=== PATIENT | female | born 1980 | race Two or more races ===

== ENCOUNTER 2020-03-02 05:20 | Emergency (ER) | payer OTHER ==
[~2020-03-02] VITALS: Ht 160 cm; Wt 72.6 kg
[2020-03-02 05:24] VITALS: BP 95/61
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
--- NOTE | 2020-03-02 05:29 | NUR ---
ED Nurse Note: [employer] officers at bedside.
[2020-03-02] MEDS ORDERED: IBUPROFEN600 M1 ORAL (05:39)
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
[2020-03-02] MEDS ORDERED: HYDROcodone/Acetamin 5/325 tab ORAL ONE (05:45)
[2020-03-02 05:56] LABS: APPEARANCE,URINE CLEAR; BILIRUBIN, URINE NEGATIVE (NEGATIVE); COLOR,URINE PALE YELLOW; GLUCOSE, URINE (UA) NEGATIVE (NEGATIVE); KETONES,URINE 1+ (NEGATIVE); LEUKOCYTE ESTERASE ,URINE 1+ (NEGATIVE); NITRITE,URINE NEGATIVE (NEGATIVE); PH,URINE 6 (4.5-8.0); PROTEIN,URINE 2+ (NEGATIVE); UROBILINOGEN,URINE NORMAL MG/DL (0.0-1.0)
--- NOTE | 2020-03-02 06:25 | Diagnostic Imaging Report ---
EXAM: CT Abdomen and Pelvis Without Intravenous Contrast CLINICAL HISTORY: PAIN TECHNIQUE: Axial computed tomography images of the abdomen and pelvis without intravenous contrast. CTDI is 6.0 mGy and DLP is 309.9 mGy-cm. One or more of the following dose reduction techniques were used: automated exposure control, adjustment of the mA and/or kV according to patient size, use of iterative reconstruction technique. COMPARISON: None. FINDINGS: Lung bases: Clear lung bases. ABDOMEN: Liver: Unremarkable. Gallbladder and bile ducts: Status post cholecystectomy otherwise biliary system unremarkable. No ductal dilation. Pancreas: Unremarkable. No ductal dilation. Spleen: Unremarkable. No splenomegaly. Adrenals: Unremarkable. No mass. Kidneys and ureters: Unremarkable. No obstructing stones. No hydronephrosis. Stomach and bowel: Multilevel diverticulosis with no signs of diverticulitis. No obstruction. PELVIS: Appendix: Normal appendix. Bladder: Decompressed urinary bladder otherwise unremarkable. No stones. Reproductive: Anteverted uterus. Right ovarian cyst measuring 2.6 x 2. 4 cm. ABDOMEN and PELVIS: Intraperitoneal space: Unremarkable. No free air. No significant fluid collection. Bones/joints: Unremarkable bony structures. No acute fracture. No dislocation. Soft tissues: Unremarkable. Vasculature: Unremarkable. No abdominal aortic aneurysm. Lymph nodes: Unremarkable. No enlarged lymph nodes. IMPRESSION: 1. Status post cholecystectomy, remainder of abdominal viscera unremarkable. 2. No bowel obstruction or focal inflammatory process from the gastrointestinal tract. 3. Right ovarian cyst as described.
--- NOTE | 2020-03-02 06:30 | NUR ---
ED Nurse Note: pt asked for and was provided with a cane to assist with walking, she declined resources at this time. was provided food and is dressed in weather apprproriate clothing
[2020-03-02 07:50] VITALS: BP 95/61
--- NOTE | 2020-03-02 07:50 | NUR ---
ED Nurse Note: Pt cleared by health care Provider for discharge. DC instructions/prescription was given and explained to pt and verbalized understanding of teachings. All medical deviecs such as ID band removed. Pt is AAO x4, ambulatory and left with all personal belongings.
== END 2020-03-02 07:50 | disposition home or self-care (01) ==
LOC: EDBD 05:20 → EMR 05:31
DX: R10.9 Unspecified abdominal pain (principal); F15.10 Other stimulant abuse, uncomplicated; Y04.8XXA Assault by other bodily force, initial encounter; Y92.9 Unspecified place or not applicable; N83.201 Unspecified ovarian cyst, right side; Z90.49 Acquired absence of other specified parts of digestive tract
CPT/HCPCS: 74176; 80307; 81003; 81025; Z7502; 99284